=== PATIENT | male | born 1955 | race Caucasian/White ===

== ENCOUNTER 2021-09-08 09:57 | Emergency (ER) | payer MEDICARE, BC ==
[~2021-09-08] VITALS: Ht 177.8 cm; Wt 97.0 kg
[~2021-09-08 09:57] MED LIST: AMOX-580 PO
[2021-09-08 11:13] LABS: ALANINE AMINOTRANSFERASE 38 U/L (12-78); ALBUMIN 2.8 G/DL (3.4-5.0); ALBUMIN/GLOBULIN RATIO 0.5 (1.1-1.5); ALKALINE PHOSPHATASE 49 IU/L (46-116); ANION GAP 15 (8-16); ASPARTATE AMINO TRANSFERASE 30 U/L (10-37); BILIRUBIN,TOTAL 0.9 MG/DL (0.1-1.0); BLOOD UREA NITROGEN 12 MG/DL (7-18); BUN/CREATININE RATIO 11.7 (5.4-32.0); CALCIUM 8.5 MG/DL (8.5-10.1); CHLORIDE 100 MMOL/L (99-107); CREATININE 1.03 MG/DL (0.60-1.10); GLUCOSE 110 MG/DL (70-104); POTASSIUM 3.6 MMOL/L (3.5-5.1); SODIUM 138 MMOL/L (135-145); TOTAL CARBON DIOXIDE 23.5 MMOL/L (24-32); TOTAL PROTEIN 7.9 G/DL (6.4-8.2); eGFR 72 ML/MIN
[2021-09-08 11:15] LABS: BASOPHILS # (AUTO) 0.1 X10'3 (0-0.2); BASOPHILS % (AUTO) 0.6 % (0-1); EOSINOPHILS # (AUTO) 0.1 X10'3 (0-0.9); HEMATOCRIT 46.8 % (42.0-52.0); HEMOGLOBIN 16.3 g/dl (14.0-17.9); LYMPHOCYTES # (AUTO) 0.9 X10'3 (1.1-4.8); LYMPHOCYTES % (AUTO) 9.3 % (21-51); MEAN CORPUSCULAR HEMOGLOBIN 29.9 PG (27.0-31.0); MEAN CORPUSCULAR HGB CONC 34.8 g/dL (33.0-36.5); MEAN CORPUSCULAR VOLUME 85.9 FL (78-98); MEAN PLATELET VOLUME 8.4 FL (7.4-10.4); MONOCYTES # (AUTO) 1.4 X10'3 (0-0.9); MONOCYTES % (AUTO) 14.3 % (2-12); NEUTROPHILS # (AUTO) 7.3 X10'3 (1.8-7.7); NEUTROPHILS % (AUTO) 74.8 % (42-75); PLATELET COUNT 563 X10'3 (140-440); RED BLOOD COUNT 5.45 X10'6 (4.70-6.10); RED CELL DISTRIBUTION WIDTH 13.4 % (11.5-14.5); WHITE BLOOD COUNT 9.8 X10'3 (4.5-11.0)
[2021-09-08] MEDS ORDERED: iohexol 350MG/ML 100ml bottle IV ONE (11:57)
--- NOTE | 2021-09-08 12:02 | NUR ---
patient in bed awake, call light within reach.awaiting for electrical line worker to take patient to ct.
--- NOTE | 2021-09-08 12:22 | NUR ---
pt to ct.
[2021-09-08] MEDS ORDERED: CASIRIVIMAB/IMDEVIMAB inject. 10 ML in normal saline 100ml IV soln 100 ML IV ONE (12:25)
[2021-09-08] MEDS ORDERED: BAMLANIVIMAB 700MG, ETESEVIMAB 1,400MG in NS 100mL (Total vol 160ml) IV ONE (12:45)
[2021-09-08] MEDS ORDERED: dexamethasone sod phosphate 10mg/ml inj IV STA (13:02)
--- NOTE | 2021-09-08 13:12 | NUR ---
ROBER UNAVAILABLE AT THIS TIME,WILL FOLLOW UP.
[2021-09-08] MEDS ORDERED: DEXA6TAB6 PO (13:57)
[2021-09-08] MEDS ORDERED: BUDE180A INH (13:57)
--- NOTE | 2021-09-08 14:45 | NUR ---
piv to right ac dc'd at this time.
--- NOTE | 2021-09-08 14:45 | NUR ---
called [facility] [phone],spoke with Vladimir/ holly noonan and said if delivery time is ok at 3PM today, Rn said it's perfectly fine, rep then confirmed that patient is still in ed bed 7.
--- NOTE | 2021-09-08 14:50 | NUR ---
patient made aware that oxygen delivery is at 3 pm.
[2021-09-08 14:54] VITALS: BP 156/101
--- NOTE | 2021-09-08 15:39 | NUR ---
called sana twice and left a message with regards to status of oxygen concentrator [phone].Awaiting for call back.
== END 2021-09-08 17:59 | disposition home or self-care (01) ==
LOC: ER 09:57
DX: U07.1 COVID-19 (principal); J96.01 Acute respiratory failure with hypoxia; R53.83 Other fatigue; R43.8 Other disturbances of smell and taste; Z79.2 Long term (current) use of antibiotics; Z79.899 Other long term (current) drug therapy
CPT/HCPCS: 36415; 71045; 71275; 80053; 83880; 84484; 85025; 87635; 93005; 96374; 99285; C9803; J1100; M0245; Q0245; Q9967; Q0239